=== PATIENT | female | born 2000 | race American Indian/Alaskan Native ===

== ENCOUNTER 2021-01-01 08:36 | Inpatient (IN) | payer MEDICAID ==
[2021-01-01] MEDS ORDERED: ePHEDrine SULFATE 50 MG/1 ML INJ IV PRN (09:38)
[2021-01-01] MEDS ORDERED: fentaNYL 100 MCG/2 ML INJ IV PRN (09:38)
[2021-01-01] MEDS ORDERED: LIDOCAINE (2%) 20 MG/1 ML VIAL 20 ML MDV INFILTRATI NR (09:38)
[2021-01-01] MEDS ORDERED: TERBUTALINE 1 MG/1 ML INJ SUB-Q PRN (10:00)
[2021-01-01] MEDS ORDERED: BUTORPHANOL 2 MG/1 ML INJ IV PRN (10:00)
[2021-01-01] MEDS ORDERED: GENTAMICIN/NS 80 MG/100 ML 100 ML IV SCH (10:00)
[2021-01-01] MEDS ORDERED: OXYTOCIN DRIP 30 UNITS/500 ML BAG IV SCH ×2 (10:00)
[2021-01-01] MEDS ORDERED: LACTATED RINGERS 1,000 ML IV SCH (10:00)
[2021-01-01 10:49] LABS: Bilirubin,Urine NEG (Negative); Blood,Urine NEG (Negative); Color,Urine Yellow (Yellow); Protein,Urine <15 mg/dL mg/dL (Negative); RBC,Urine < 1.0 /HPF (0.0-6.0); Urobilinogen,Urine < 2.0 mg/dL (<2.0); WBC,Urine < 1.0 /HPF (0.0-6.0)
[2021-01-01 10:55] LABS: Hematocrit 34.5 % (30.3-42.9); Hemoglobin 11.8 gm/dl (10.1-14.3); Mean Corpuscular HGB Conc 34 % (30-34); Mean Corpuscular Volume 85 fl (79-97); Platelet Count 181 K/mm3 (140-440); Red Blood Count 4.08 M/mm3 (3.65-5.03); Red Cell Distribution Width 14.4 % (13.2-15.2)
--- NOTE | 2021-01-01 11:10 | History and Physical Report ---
History of Present Illness Date of examination: 01/01/21 Date of admission: 01/01/21 08:37 Chief complaint: contractions History of present illness: 20y/o @ 38+6 weeks presents painful contractions. The patient was seen twice last night for pain without cervical change. She represents with the same complaint. The patient was febrile to 101. She denies leakage of fluid or vaginal bleeding. GBS negative. Past History Past Medical History: no pertinent history Past Surgical History: no surgical history Social history: single - Obstetrical History Expected Date of Delivery: 01/09/21 Actual Gestation: 38 Week(s) 6 Day(s) : 1 Para: 0 Hx # Term Pregnancies: 0 Number of Pregnancies: 0 Spontaneous Abortions: 0 Induced : 0 Number of Living Children: 0 Medications and Allergies Allergies Allergy/AdvReac Type Severity Reaction Status Date / Time penicillin G Allergy Intermediate Rash Verified 12/31/20 22:44 Home Medications Medication Instructions Recorded Confirmed Last Taken Type Pnv Plus Multivit Tab 12/31/20 12/31/20 History 0900 Active Meds: Active Medications Butorphanol Tartrate (Butorphanol 2 Mg/1 Ml Inj) 2 mg IV Q2H PRN PRN Reason: Pain , Severe (7-10) Ephedrine Sulfate (Ephedrine Sulfate 50 Mg/1 Ml Inj) 10 mg IV Q2M PRN PRN Reason: Hypotension Fentanyl (Fentanyl 100 Mcg/2 Ml Inj) 100 mcg IV Q2H PRN PRN Reason: Pain,Severe (7-10) LABOR PAIN Oxytocin/Sodium Chloride (Pitocin/Ns 30 Unit/500ml) 30 units in 500 mls @ 2 mls/hr IV TITR LORRAINE; Protocol Lactated Ringer's (Lactated Ringers) 1,000 mls @ 125 mls/hr IV DIRECT LORRAINE Last Admin: 01/01/21 10:31 Dose: 1,200 mls/hr Documented by: Oxytocin/Sodium Chloride (Pitocin/Ns 30 Unit/500ml) 30 units in 500 mls @ 40 mls/hr IV TITR LORRAINE; Protocol Clindamycin HCl (Cleocin 900 Mg/50 Ml) 900 mg in 50 mls @ 100 mls/hr IV Q8H LORRAINE; Protocol Last Admin: 01/01/21 10:32 Dose: 100 mls/hr Documented by: Gentamicin Sulfate/Sodium Chloride (Gentamicin/Ns 80 Mg/100 Ml) 100 mls @ 200 mls/hr IV Q8H LORRAINE Lidocaine (Lidocaine (2%) 20 Mg/1 Ml Vial 20 Ml Mdv) 20 ml INFILTRATI ONCE NR Stop: 01/01/21 18:00 Mineral Oil (Mineral Oil 30 Ml Oral Liqd) 30 ml PO QHS PRN PRN Reason: Constipation Terbutaline Sulfate (Terbutaline 1 Mg/1 Ml Inj) 0.25 mg SUB-Q ONCE PRN PRN Reason: Hyperstimulation/Hypertonicity Stop: 01/02/21 09:59 Review of Systems All systems: negative Genitourinary: pelvic pain, contractions - Vital Signs Vital signs: Vital Signs Pulse BP 70 131/83 01/01/21 09:03 01/01/21 09:03 Temp Pulse Resp BP Pulse Ox 101.3 F H 87 16 141/84 98 01/01/21 09:20 01/01/21 10:58 01/01/21 09:20 01/01/21 10:45 01/01/21 10:58 - Physical Exam Breasts: Positive: deferred Cardiovascular: Regular rate Abdomen: Positive: normal appearance - Obstetrical Cervical Dilatation: 3 Results Result Diagrams: 01/01/21 10:00 All other labs normal. Assessment and Plan - Patient Problems (1) Labor, prolonged latent phase Current Visit: Yes Status: Acute Plan to address problem: admit for augmentation of labor initiate clindamycin and gentamicin (2) Febrile Current Visit: Yes Status: Acute
[2021-01-01] MEDS ORDERED: ONDANSETRON 4 MG/2 ML INJ IV PRN (14:35)
[2021-01-01] MEDS ORDERED: ACETAMINOPHEN 325 MG TAB PO PRN (14:35)
[2021-01-01] MEDS ORDERED: PROMETHAZINE 25 MG TAB PO PRN (14:35)
[2021-01-01] MEDS ORDERED: diphenhydrAMINE 25 MG CAP PO PRN (14:35)
[2021-01-01] MEDS ORDERED: PROMETHAZINE 25 MG RECT SUPP PR PRN (14:35)
[2021-01-01] MEDS ORDERED: MAGNESIUM HYDROXIDE (MOM) ORAL LIQD UDC PO PRN (14:35)
[2021-01-01] MEDS ORDERED: LANOLIN/ZINC/DIMETHICONE (LANSINOH) 7 GM TP PRN (14:35)
[2021-01-01] MEDS ORDERED: miSOPROStol 100 MCG TAB ONE (15:25)
[2021-01-01] MEDS ORDERED: miSOPROStol 200 MCG TAB ONE (15:25)
--- NOTE | 2021-01-01 15:26 | Procedure Note ---
OB Delivery Note - Delivery Date of Delivery: 01/01/21 Surgeon: YAMIL EDDY Estimated blood loss: other (400 mL) - Vaginal Delivery presentation: vertex Delivery position: OA Delivery augmentation: pitocin Delivery monitor: external FHT, external uterine Route of delivery: Delivery placenta: spontaneous Delivery cord: 3 umbilical vessels Episiotomy: none Delivery laceration: 2nd degree Delivery repair: vicryl Anesthesia: local Delivery comments: The patient progressed to complete complete +2 and post to deliver a live-born male infant with Apgars of 8 and 9 weight 6 pounds 14 ounces. After delivery of the head the shoulders delivered without difficulty. The infant was bulb suctioned and the cord was clamped and cut. The infant was placed on the patient's abdomen. The placenta delivered spontaneously intact with a three- vessel cord. The patient experienced some uterine atony that was resolved with uterine massage and medical therapy. The patient sustained a midline degree laceration that was repaired with 2-0 Vicryl in a normal fashion. The site was injected with 1% lidocaine. Estimated blood loss of 400 mL - Infant A at 1 minute: 8 at 5 minutes: 9 Infant Gender: Male (Weight 6 pounds 14 ounce)
[2021-01-01] MEDS ORDERED: miSOPROStol 200 MCG TAB PR ONE (16:00)
[2021-01-01] MEDS: IBUPROFEN 600 MG TAB PO SCH ×2 (18:50→23:55)
[2021-01-01] MEDS: WITCH HAZEL/ GLYCERIN PAD TP PRN (18:51)
[2021-01-01] MEDS ORDERED: MINERAL OIL 30 ML ORAL LIQD PO PRN (22:00)
[2021-01-01] MEDS: HYDROcodone/ACETAMINOPHEN 5-325 MG TAB PO PRN (22:58)
[2021-01-02] MEDS: IBUPROFEN 600 MG TAB PO SCH ×3 (05:19→18:35)
[2021-01-02 06:19] LABS: Hemoglobin 8.3 gm/dl (10.1-14.3)
--- NOTE | 2021-01-02 08:01 | Progress Note ---
Assessment and Plan A: PPD #1 s/p at term Fever of unknown etiology; s/p clinda and gent. COVID negative P:Continue with routine care Temp was stable at 98.9 at 0425, continue with observation and use of antipyretic therapy as needed Anticipate discharge tomorrow morning pending stabilized maternal temperature Subjective - Subjective Date of service: 01/02/21 Principal diagnosis: s/p at term; fever of unknown etiology Interval history: PPD #1 S/P at term. Patient is feeling well, currently bonding with infant and has no complaints. Reporting little pain and decreasing lochia. Patient reports: appetite normal, voiding normally, pain well controlled, ambulating normally : doing well Objective - Vital Signs Latest vital signs: Vital Signs Temp Pulse Resp BP BP Pulse Ox 01/02/21 04:25 98.9 F 01/02/21 00:37 100.1 F H 77 18 118/78 01/01/21 22:58 18 01/01/21 20:10 100.3 F H 94 H 18 126/74 100 01/01/21 18:50 16 01/01/21 17:45 99.2 F 72 16 130/72 100 01/01/21 16:47 84 132/63 01/01/21 16:45 81 129/64 01/01/21 16:32 98 H 130/94 01/01/21 16:04 81 128/58 01/01/21 16:03 83 98 01/01/21 15:59 83 130/63 01/01/21 15:58 90 100 01/01/21 15:54 88 130/61 01/01/21 15:53 82 100 01/01/21 15:49 99.1 F 94 H 132/65 01/01/21 15:48 90 100 01/01/21 15:44 95 H 133/62 01/01/21 15:43 97 H 100 01/01/21 15:39 103 H 140/61 01/01/21 15:38 105 H 100 01/01/21 15:33 86 100 01/01/21 15:28 99 H 100 01/01/21 15:23 114 H 100 01/01/21 15:18 113 H 100 01/01/21 15:15 101 H 140/62 01/01/21 15:13 100 H 100 05 15:08 117 H 99 05 15:07 73 84 05 15:03 91 H 100 05 14:58 83 100 05 14:53 83 98 05 14:48 91 H 96 05 14:43 96 H 100 05 14:38 106 H 100 05 14:33 82 100 05 14:28 83 98 05 14:25 105 H 88 05 14:23 88 99 05 14:18 85 100 05 14:17 92 H 137/85 05 14:13 83 100 05 14:08 100 H 99 05 14:03 85 100 05 13:58 93 H 99 05 13:53 103 H 99 05 13:50 80 145/86 05 13:48 92 H 100 05 13:45 87 154/90 05 13:43 90 100 05 13:38 81 99 05 13:33 80 100 05 13:28 83 99 05 13:23 103 H 100 05 13:18 88 99 05 13:14 82 138/83 05 13:13 83 99 05 13:08 94 H 99 01/01/21 13:03 104 H 99 05 12:58 104 H 100 05 12:53 96 H 98 05 12:52 98.9 F 82 05 12:48 91 H 98 05 12:45 80 149/89 05 12:43 80 100 05 12:38 92 H 99 05 12:34 98 H 91 05 12:33 83 100 05 12:28 90 100 05 12:23 88 98 05 12:18 87 99 05 12:15 93 H 145/83 05 12:13 102 H 100 05 12:08 98 H 99 01/01/21 12:03 94 H 99 01/01/21 11:58 101 H 100 01/01/21 11:53 104 H 99 01/01/21 11:48 94 H 99 01/01/21 11:46 93 H 143/78 01/01/21 11:43 84 100 01/01/21 11:38 84 100 01/01/21 11:33 101 H 99 01/01/21 11:30 94 H 88 01/01/21 11:28 97 H 100 01/01/21 11:23 105 H 100 01/01/21 11:18 80 99 01/01/21 11:17 82 162/91 01/01/21 11:13 84 99 01/01/21 11:08 85 100 01/01/21 11:03 96 H 100 01/01/21 10:58 87 98 01/01/21 10:53 93 H 100 01/01/21 10:48 79 100 01/01/21 10:45 80 141/84 01/01/21 10:43 104 H 98 01/01/21 10:38 87 100 01/01/21 10:33 91 H 100 01/01/21 10:28 76 100 01/01/21 10:23 78 100 01/01/21 10:18 75 100 01/01/21 10:15 76 154/92 01/01/21 10:13 75 100 01/01/21 09:57 76 100 01/01/21 09:52 80 100 01/01/21 09:51 85 122/83 01/01/21 09:47 87 100 01/01/21 09:31 77 100 01/01/21 09:26 78 100 01/01/21 09:21 81 99 01/01/21 09:20 101.3 F H 16 01/01/21 09:16 78 99 01/01/21 09:11 75 100 01/01/21 09:06 74 100 01/01/21 09:03 70 131/83 Intake and Output 01/01/21 01/02/21 01/02/21 23:59 07:59 15:59 Intake Total 700 200 Output Total 1400 Balance -700 200 Intake: Oral 400 200 Intake, Free Water 300 Output: Urine 1400 Void 1400 Other: Total, Intake Amount 200 200 Total, Output Amount 400 # Voids Void 1 - Exam Uterus: Present: normal, fundal height below umbilicus - Labs Labs: Abnormal lab results 01/02/21 Range/Units 04:25 Hgb 8.3 L D (10.1-14.3) gm/dl Hct 24.0 L D (30.3-42.9) %
[2021-01-02] MEDS: FERROUS SULFATE 325 MG TAB PO SCH ×3 (08:17→20:42)
[2021-01-03] MEDS: HYDROcodone/ACETAMINOPHEN 5-325 MG TAB PO PRN (00:10)
[2021-01-03] MEDS: WITCH HAZEL/ GLYCERIN PAD TP PRN (05:53)
[2021-01-03] MEDS: IBUPROFEN 600 MG TAB PO SCH ×2 (05:54→12:00)
[2021-01-03] MEDS: FERROUS SULFATE 325 MG TAB PO SCH ×2 (08:10→14:18)
--- NOTE | 2021-01-03 08:37 | Discharge Summary ---
Providers - Providers Date of Admission: 01/01/21 08:37 Date of discharge: 01/03/21 (1400) Attending physician: YAMIL EDDY Primary care physician: YAMIL EDDY Hospitalization Reason for admission: active labor Delivery: Episiotomy: none Laceration: 2nd degree (healing as expected) Other procedures: none complications: none Discharge diagnosis: IUP at term delivered baby: male Hospital course: 20y/o @ 38+6 weeks presents painful contractions. The patient was seen twice last night for pain without cervical change. She represents with the same complaint. The patient was febrile to 101. She denies leakage of fluid or vaginal bleeding. GBS negative. Temp was stable at 98.9 at 0425, continue with observation and use of antipyretic therapy as needed Condition at discharge: Good Disposition: DC-01 TO HOME OR SELFCARE - Discharge Diagnoses (1) Status post normal vaginal delivery Status: Acute (2) Anemia Status: Acute Qualifiers: Anemia type: other cause Other causes of anemia: acute posthemorrhagic Qualified Code(s): D62 - Acute posthemorrhagic anemia Comment: Asymptomatic Plan - Discharge Medications Prescriptions: Ferrous Sulfate [Feosol 325 MG tab] 325 mg PO TID #90 tablet Ibuprofen [Motrin] 600 mg PO Q8H PRN #30 tablet PRN Reason: Pain - Provider Discharge Summary Activity: routine, no sex for 6 weeks, no heavy lifting 4 weeks, no strenuous exercise Diet: other (Iron rich diet) Instructions: routine Additional instructions: [] Smoking cessation referral if applicable(refer to patient education folder for contact #) [] Refer to [facility] Booklet Call your doctor immediately for: * Fever > 100.5 * Heavy vaginal bleeding ( >1 pad per hour) * Severe persistent headache * Shortness of breath * Reddened, hot, painful area to leg or breast * Drainage or odor from incision. * Keep laceration site clean and dry at all times and follow doctor's instructions regarding bathing/showering - Follow up plan Follow up: YAMIL EDDY MD [Primary Care Provider] - 6 Weeks
[2021-01-03 16:43] VITALS: BP 117/68
== END 2021-01-03 15:15 | disposition home or self-care (01) | DRG 775 ==
LOC: TRG 08:36 → APU 08:37 → LD 08:38 → APU 08:46 → TRG 09:38 → OB 18:26
PROVIDERS: ADMIT Obstetrics & Gynecology; ATTEND Obstetrics & Gynecology
PROC: 10E0XZZ Delivery of Products of Conception, External Approach (ICD-10-PCS; principal; 2021-01-01)
PROC: 0KQM0ZZ Repair Perineum Muscle, Open Approach (ICD-10-PCS; 2021-01-01)
DX: O70.1 Second degree perineal laceration during delivery (principal); Z37.0 Single live birth; Z3A.38 38 weeks gestation of pregnancy; Z88.0 Allergy status to penicillin; Z20.822 Contact with and (suspected) exposure to COVID-19; D62 Acute posthemorrhagic anemia; O99.03 Anemia complicating the puerperium
CPT/HCPCS: 36415; 59025; 76819; 81001; 85014; 85018; 85027; 86592; 86850; 86900; 86901; 96360; 96365; 96374; 99211; G0378; A6250; G0463; J0595; J1580; J2590; J7120; Q0177; U0003